=== PATIENT | female | born 1965 | race Two or more races ===

== ENCOUNTER 2022-12-29 09:57 | Day surgery (SDC) | payer OTHER ==
[~2022-12-29] VITALS: Ht 170.2 cm; Wt 78.9 kg
[~2022-12-29 09:57] MED LIST: ALBU108A5 IN; ASPI325T4 PO; CLOP75TA28 PO; CYCL-611 PO; GABA800T97 PO; INSU100I43 SC; INSU1INJ19 SC; LOSA100T33 PO; METF-370 PO; SITA100T7 PO
[2022-12-29] MEDS ORDERED: IODIXANOL 320MG/ML 100ML BTL IV ONE (10:47)
[2022-12-29] MEDS ORDERED: LIDOCAINE 2%HCL (LOCAL ANESTH.) INJ 20ML MDV ONE (10:47)
[2022-12-29] MEDS ORDERED: ANGIOMAX 250 MG VIAL IV ONE (10:57)
[2022-12-29] MEDS ORDERED: VERAPAMIL 2.5MG/ML INJ 2ML VIAL IV ONE (10:57)
[2022-12-29] MEDS ORDERED: SODIUM CHL 0.9% 0 ML ONE (10:58)
[2022-12-29] MEDS ORDERED: fentaNYL CITRATE 100 MCG/2 ML VL ONE (10:58)
[2022-12-29] MEDS ORDERED: MIDAZOLAM HCL 2MG/2ML 2ml VIAL (1mg/ml) ONE (10:58)
[2022-12-29] MEDS ORDERED: HEPARIN SODIUM (PORCINE) 5000 UNITS/ML 1ML VIAL ONE (11:19)
[2022-12-29 11:41] VITALS: BP 125/68
[2022-12-29 11:56] VITALS: BP 127/82
[2022-12-29 12:26] VITALS: BP 105/65
[2022-12-29 12:41] VITALS: BP 107/56
[2022-12-29 12:56] VITALS: BP 114/49
[2022-12-29 13:23] VITALS: BP 120/66
== END 2022-12-29 13:32 | disposition home or self-care (01) ==
LOC: CATH 09:57
PROVIDERS: ATTEND Internal Medicine
DX: R94.39 Abnormal result of other cardiovascular function study (principal); I25.118 Atherosclerotic heart disease of native coronary artery with other forms of angina pectoris; I42.8 Other cardiomyopathies; I50.9 Heart failure, unspecified; E78.00 Pure hypercholesterolemia, unspecified; I11.0 Hypertensive heart disease with heart failure; E11.40 Type 2 diabetes mellitus with diabetic neuropathy, unspecified; Z79.899 Other long term (current) drug therapy; Z79.84 Long term (current) use of oral hypoglycemic drugs; Z98.890 Other specified postprocedural states; F17.210 Nicotine dependence, cigarettes, uncomplicated
CPT/HCPCS: 93458; C1769; C1887; C1894; J1644; J2250; J3010; Q9967; 99152